=== PATIENT | female | born 1985 | race Hispanic/Latino ===

== ENCOUNTER → 2019-08-22 | Outpatient (CLI) | payer OTHER ==
--- NOTE | 2019-08-22 11:58 | Diagnostic Imaging Report ---
HISTORY : Abdominal pain COMPARISON : No comparisons for review COMMENT : Complete ultrasound examination of the abdomen was performed. The liver is normal in size measuring 4.9 cm in length along the right midclavicular line and homogeneous in echo-texture without evidence of a focal mass. The gallbladder appears normal without evidence of stones, sludge, wall thickening or pericholecystic fluid. The biliary tract is within normal limits with the common bile duct measuring 2 mm in maximum diameter. The visualized portions of the pancreas are within normal limits. The spleen is normal in size and echo-texture measuring 8.8 cm in maximum dimension. The right kidney measures 10.0 cm and the left kidney 0.3 cm in maximum size. There is no evidence of cysts, masses, stones or hydronephrosis. The portal vein measures to a maximum of 0.8 cm in diameter. There is no ascites or pleural effusion. The visualized inferior vena cava, hepatic veins and abdominal aorta are within normal limits. The maximum diameter of the abdominal aorta is 1.5 cm. IMPRESSION : Normal ultrasound of the abdomen. Signed by: Jeremiah Corona MD on 08/22/2019 11:54 AM
== END ==
LOC: US 09:12
PROVIDERS: ATTEND Family Medicine
DX: R10.9 Unspecified abdominal pain (principal)
CPT/HCPCS: 76700